=== PATIENT | female | born 1975 | race Two or more races ===

== ENCOUNTER 2020-05-28 08:04 | Emergency (ER) | payer OTHER ==
[~2020-05-28] VITALS: Ht 162.6 cm; Wt 65.8 kg
[~2020-05-28 08:04] MED LIST: AMOX TR-K CLV 81 TAB; CLONAZEPAM1 MG; DEPAKOTE ER250 MG; KLONOPIN0.5 MG/TAB PO; LAMICTAL5 MG; SYNTHROID100 MCG
[2020-05-28] MEDS ORDERED: DIVALPROEX SOD500 M1 PO (08:30)
[2020-05-28] MEDS ORDERED: LEVOTHYROXINE100 MCG PO (08:30)
[2020-05-28] MEDS ORDERED: VISTARIL50 MG PO (10:52)
== END 2020-05-28 10:57 | disposition home or self-care (01) ==
LOC: ER 08:04
DX: S92.411A Displaced fracture of proximal phalanx of right great toe, initial encounter for closed fracture (principal); W22.8XXA Striking against or struck by other objects, initial encounter; Y93.89 Activity, other specified; Y92.89 Other specified places as the place of occurrence of the external cause; Y99.8 Other external cause status

== ENCOUNTER 2020-11-17 20:45 | Emergency (ER) | payer OTHER ==
[~2020-11-17] VITALS: Ht 160 cm; Wt 0.5 kg
[~2020-11-17 20:45] MED LIST changes: +DIVALPROEX SOD500 M1 PO; +LEVOTHYROXINE100 MCG PO; +VISTARIL50 MG PO
[2020-11-17] MEDS ORDERED: SYNTHROID100 MCG (21:11)
[2020-11-17] MEDS ORDERED: ZOLOFT25 MG (21:11)
[2020-11-17] MEDS ORDERED: DEPAKOTE ER500 MG (21:11)
[2020-11-17] MEDS ORDERED: AMBIEN5 MG (21:11)
[2020-11-18] MEDS ORDERED: MIRALAX510 GM PO (00:26)
== END 2020-11-18 00:44 | disposition home or self-care (01) ==
LOC: ER 20:45
DX: K59.09 Other constipation (principal); R53.81 Other malaise; Z11.52 Encounter for screening for COVID-19

== ENCOUNTER 2020-12-25 14:55 | Emergency (ER) | payer OTHER ==
[~2020-12-25] VITALS: Ht 162.6 cm; Wt 72.6 kg
[~2020-12-25 14:55] MED LIST changes: +AMBIEN5 MG; +DEPAKOTE ER500 MG; +MIRALAX510 GM PO; +ZOLOFT25 MG
[2020-12-25] MEDS ORDERED: BUTALB-ASPIRIN1 EACH PO (20:21)
== END 2020-12-25 21:35 ==
LOC: ER 14:55
DX: S00.83XA Contusion of other part of head, initial encounter (principal); W19.XXXA Unspecified fall, initial encounter; Y93.89 Activity, other specified; Y92.098 Other place in other non-institutional residence as the place of occurrence of the external cause; Y99.8 Other external cause status; G44.209 Tension-type headache, unspecified, not intractable; R42 Dizziness and giddiness

== ENCOUNTER 2021-03-15 08:39 | Emergency (ER) | payer OTHER ==
[~2021-03-15] VITALS: Ht 162.6 cm; Wt 73.0 kg
[~2021-03-15 08:39] MED LIST changes: -KETO10TA2 PO; -ORPHENADRINE C100 MG PO; -SYNTHROID112 MCG PO
[2021-03-15] MEDS ORDERED: SYNTHROID112 MCG PO (12:37)
[2021-03-15] MEDS ORDERED: KETO10TA2 PO (12:37)
[2021-03-15] MEDS ORDERED: ORPHENADRINE C100 MG PO (12:37)
== END 2021-03-15 13:45 ==
LOC: ER 08:39
DX: R07.89 Other chest pain (principal); M54.12 Radiculopathy, cervical region; V89.2XXA Person injured in unspecified motor-vehicle accident, traffic, initial encounter; Y92.410 Unspecified street and highway as the place of occurrence of the external cause

== ENCOUNTER → 2021-03-15 | Emergency (ER) | payer OTHER ==
[~2021-03-15] MED LIST changes: +BUTALB-ASPIRIN1 EACH PO; +KETO10TA2 PO; +ORPHENADRINE C100 MG PO; +SYNTHROID112 MCG PO
== END | disposition left against medical advice (07) ==
LOC: ER 06:42
DX: Z53.21 Procedure and treatment not carried out due to patient leaving prior to being seen by health care provider (principal)

== ENCOUNTER 2021-05-02 06:00 | Emergency (ER) | payer OTHER ==
[~2021-05-02] VITALS: Ht 157.5 cm; Wt 54.4 kg
[~2021-05-02 06:00] MED LIST changes: +KETO10TA2 PO; +ORPHENADRINE C100 MG PO; +SYNTHROID112 MCG PO
[2021-05-02] MEDS ORDERED: MEDROLPACK PO (13:08)
[2021-05-02] MEDS ORDERED: AZITHROMYCIN1 GM PO (13:08)
[2021-05-02] MEDS ORDERED: TUSNEL DM LIQU473 ML PO (13:08)
[2021-05-02] MEDS ORDERED: DOLOGEN 325-11 EACH PO (13:08)
== END 2021-05-02 14:27 | disposition home or self-care (01) ==
LOC: ER 06:00
DX: S00.83XA Contusion of other part of head, initial encounter (principal); W18.09XA Striking against other object with subsequent fall, initial encounter; Y93.89 Activity, other specified; Y92.098 Other place in other non-institutional residence as the place of occurrence of the external cause; Y99.8 Other external cause status; U07.1 COVID-19

== ENCOUNTER 2021-06-13 22:45 | Emergency (ER) | payer OTHER ==
[~2021-06-13] VITALS: Ht 160 cm; Wt 79.4 kg
[~2021-06-13 22:45] MED LIST changes: +AZITHROMYCIN1 GM PO; +DOLOGEN 325-11 EACH PO; +MEDROLPACK PO; +TUSNEL DM LIQU473 ML PO
[2021-06-13] MEDS ORDERED: DEPAKOTE ER250 MG (23:11)
[2021-06-13] MEDS ORDERED: CLONAZEPAM0.5 MG (23:12)
[2021-06-13] MEDS ORDERED: AMBIEN CR12.5 MG (23:12)
[2021-06-13] MEDS ORDERED: ZOLOFT25 MG (23:13)
[2021-06-13] MEDS ORDERED: CLONAZEPAM1 MG (23:13)
[2021-06-14] MEDS ORDERED: CLONAZEPAM1 MG PO (01:20)
[2021-06-14] MEDS ORDERED: AMBIEN CR12.5 MG PO (01:20)
== END 2021-06-14 00:12 | disposition home or self-care (01) ==
LOC: ER 22:45
DX: F41.8 Other specified anxiety disorders (principal)